=== PATIENT | male | born 1985 | race Caucasian/White ===

== ENCOUNTER 2017-03-29 16:25 | Emergency (ER) | payer OTHER ==
[~2017-03-29] VITALS: Ht 188 cm; Wt 80.3 kg
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
[2017-03-29] MEDS ORDERED: ROBAXIN500 MG PO (17:15)
[2017-03-29] MEDS ORDERED: IBUPROFEN600 MG ORAL (17:15)
[2017-03-29 17:59] VITALS: BP 147/91
[2017-03-29 18:02] VITALS: BP 147/91
== END 2017-03-29 18:02 | disposition home or self-care (01) ==
LOC: EMR 17:19
DX: S13.9XXA Sprain of joints and ligaments of unspecified parts of neck, initial encounter (principal); V43.52XA Car driver injured in collision with other type car in traffic accident, initial encounter; Y92.410 Unspecified street and highway as the place of occurrence of the external cause; Y99.0 Civilian activity done for income or pay
CPT/HCPCS: 99283